=== PATIENT | female | born 1975 | race African-American/Black ===

== ENCOUNTER 2016-08-16 02:04 | Emergency (ER) | payer OTHER ==
--- NOTE | ~2016-08-16 | CT71 ---
[facility] A Service of [facility] RADIOLOGY TEXT RESULTS PATIENT: JUDI LOCO LOCATION: [facility] : 73 UNIT #: [id number] AGE: [address]: NICOLAS BALTAZAR APRN SEX: F ORDER DR: [id number] [place], [place] [address] [id number] E MR#: [id number] Acc #: [id number] NAME: JUDI LOCO : 1975 SEX: F STUDY DATE/TIME: 08/16/2016 6:00 UNIT: [facility] ROOM: STUDY DESCRIPTION: CT Head Wo Contrast Attending Physician: Nicolas Baltazar Aprn Ordering Physician: Nicolas Baltazar Aprn Primary Care Physician: Shellie Solis M.D. MEDICAL IMAGING REPORT This report is preliminary unless electronic signature is present EXAM CT scan of the head without contrast. HISTORY Multiple falls and dizziness for 3 months with a history of pituitary tumor. COMPARISON 10/31/2015 TECHNIQUE Axial unenhanced images were obtained through the brain. This CT exam was performed with one or more of the following radiation dose reduction techniques: automatic exposure control, adjustment of mA and/or kV according to patient size, and iterative reconstruction. FINDINGS The ventricles and subarachnoid spaces are normal. No masses are identified. No pituitary tumor is visible. There is no hemorrhage. IMPRESSION Normal unenhanced head CT scan. Dictated by... Branden Coles M.D. THIS IS AN ELECTRONICALLY VERIFIED REPORT Branden Coles M.D. at 08/16/2016 2:34 PM FEL/tmw [facility] A Service of [facility] / [facility] RADIOLOGY TEXT RESULTS PATIENT: JUDI LOCO LOCATION: [facility] : 73 UNIT #: [id number] AGE: [address]: NICOLAS BALTAZAR APRN SEX: F ORDER DR: TD: 08/16/2016 12:56 JOB #: [id number] MEDICAL IMAGING REPORT Page 1 of 1 COPY
--- NOTE | ~2016-08-16 | CR106 ---
[facility] A Service of [facility] & [facility] RADIOLOGY TEXT RESULTS PATIENT: JUDI LOCO LOCATION: [facility] : 73 UNIT #: [id number] AGE: [address]: NICOLAS BALTAZAR APRN SEX: F ORDER DR: [id number] [facility] [address] [place], [place] [address] [id number] E MR#: [id number] Acc #: [id number] NAME: JUDI LOCO : 1975 SEX: F STUDY DATE/TIME: 08/16/2016 3:29 UNIT: [facility] ROOM: STUDY DESCRIPTION: CR Femur 2 Views Lt Attending Physician: Nicolas Baltazar Aprn Ordering Physician: Nicolas Baltazar Aprn Primary Care Physician: Shellie Solis M.D. MEDICAL IMAGING REPORT This report is preliminary unless electronic signature is present EXAM Left femur, 08/16/2016. HISTORY 41-year-old female in the ED complaining of femur pain after a fall yesterday. TECHNIQUE AP and lateral radiographs of the left femur. FINDINGS The examination is negative. No fracture, dislocation, or other osseous abnormality. IMPRESSION Negative left femur series. Dictated by... Jaya Zacarias M.D. THIS IS AN ELECTRONICALLY VERIFIED REPORT Jaya Zacarias M.D. at 08/16/2016 9:56 PM ROSSW/gabrielle TD: 08/16/2016 12:27 JOB #: [id number] MEDICAL IMAGING REPORT Page 1 of 1 COPY
[~2016-08-16 02:04] MED LIST: CIPRO PO; FERRO-TIME325 MG PO; FLEXERIL10 M1 PO; FOLIC ACID1 MG PO; LIORESAL10 MG PO; LOPRESSOR PO; LYRICA100 MG PO; LYRICA75 MG PO; MULTI VITAMIN1 EACH PO; NEURONTIN600 MG PO; NORVASC PO; OXYBUTYNIN15 MG/BOTT PO; OXYCODONE HCL5 MG PO; PHENERGAN12.5 MG PO; POTASSIUM CHLO10 ME1 PO; SYNTHROID PO; VISTARIL PO; VOLTAREN50 MG PO; XODOL 7.5-3001 EACH PO; ZOFRAN PO
[2016-08-16 04:41] LABS: URINE APPEARANCE CLOUDY; URINE BILIRUBIN NEG (NEG); URINE BLOOD NEG (NEG); URINE COLOR DK YELLOW; URINE GLUCOSE NEG (NEG); URINE KETONE TRACE (NEG); URINE LEUKOCYTE ESTERASE 1+ (NEG); URINE NITRATE NEG (NEG); URINE PH 5.5 (5-8); URINE PROTEIN 1+ (NEG); URINE SPECIFIC GRAVITY 1.029 (1.003-1.035)
[2016-08-16 04:45] LABS: CULTURE INDICATED? YES; URINE BACTERIA AUWI NEG (NEGATIVE); URINE SQUAMOUS EPITHELIAL CELL MANY /[HPF]
[2016-08-16 04:46] LABS: BASOPHIL% 0.6 % (0-2.5); EOSINOPHIL% 1.9 % (0.0-7.0); HEMATOCRIT 35.1 % (35.0-45.0); HEMOGLOBIN 11.7 gm/dL (12.0-16.0); LYMPHOCYTE% 44.9 % (17.0-45.0); MEAN CELL VOLUME 103.8 FL (83-96); MEAN CORPUSCULAR HEMOGLOBIN 34.7 PG (28-34); MEAN CORPUSCULAR HGB CONC 33.4 g/dL (30-36); MEAN PLATELET VOLUME 7.8 FL (6.5-11.5); MONOCYTE# 0.2 X10e3 (0-1.0); MONOCYTE% 10.2 % (3.0-12.0); NEUTROPHIL% 42.4 % (40-75); PLATELET COUNT 140 X10e3 (140-420); RED BLOOD COUNT 3.38 X10e (3.90-5.30); RED CELL DISTRIBUTION WIDTH 17.1 % (11.0-15.5); WHITE BLOOD COUNT 2.2 X10e3 (4.0-10.5)
[2016-08-16 04:48] LABS: DIFF IND YES
[2016-08-16 04:52] LABS: U HYALINE CASTS AUWI 0-2 /[LPF]
[2016-08-16 05:05] LABS: ALBUMIN SERUM 3.7 g/dL (3.5-5.0); BILIRUBIN, DIRECT 0.2 mg/dL (0.0-0.2); BILIRUBIN,INDIRECT 0.8 mg/dL (0.0-0.9); BUN/CREATININE RATIO 15.55; CALCIUM SERUM 8.8 mg/dL (8.4-10.2); CREATININE SERUM 0.9 mg/dL (0.6-1.4); GLOM FILT RATE Estimated 91.5 mL/min (>60); POTASSIUM 3.3 mmol/L (3.5-5.1); PROTEIN TOTAL SERUM 6.8 g/dL (6.0-8.3)
[2016-08-16 05:10] LABS: ANISOCYTOSIS SL; PLATELET ESTIMATE NORMAL (NORMAL)
[2016-08-16 05:11] LABS: TARGET CELLS SL
== END 2016-08-16 07:09 | disposition home or self-care (01) ==
LOC: CED 02:04
PROVIDERS: Nurse Practitioner Family
DX: S70.12XA Contusion of left thigh, initial encounter (principal); R25.1 Tremor, unspecified; F41.9 Anxiety disorder, unspecified; F17.210 Nicotine dependence, cigarettes, uncomplicated; Z90.49 Acquired absence of other specified parts of digestive tract; Z98.51 Tubal ligation status; Z88.6 Allergy status to analgesic agent; Z79.899 Other long term (current) drug therapy; W18.30XA Fall on same level, unspecified, initial encounter; Y92.9 Unspecified place or not applicable
CPT/HCPCS: 36415; 70450; 73552; 80048; 80076; 81003; 84703; 85025; 87086; 99284

== ENCOUNTER 2016-10-03 10:19 | Emergency (ER) | payer OTHER ==
[~2016-10-03] VITALS: Ht 165.1 cm; Wt 81.6 kg
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
== END 2016-10-03 12:40 | disposition home or self-care (01) ==
LOC: CED 10:19
DX: S13.4XXA Sprain of ligaments of cervical spine, initial encounter (principal); F17.200 Nicotine dependence, unspecified, uncomplicated; V59.50XA Passenger in pick-up truck or van injured in collision with unspecified motor vehicles in traffic accident, initial encounter
CPT/HCPCS: 72040; 99284

== ENCOUNTER → 2016-10-22 | Outpatient (CLI) | payer OTHER ==
--- NOTE | ~2016-10-22 | US116 ---
[facility] A Service of [facility] RADIOLOGY TEXT RESULTS PATIENT: JUDI LOCO LOCATION: [facility] : 73 UNIT #: [id number] AGE: [address]: Shellie Solis MD SEX: F ORDER DR: [id number] [facility] [place], [place] [address] [id number] O MR#: [id number] Acc #: [id number] NAME: JUDI LOCO : 1975 SEX: F STUDY DATE/TIME: 10/22/2016 15:56 UNIT: [facility] ROOM: STUDY DESCRIPTION: US Soft Tissue Head/Neck Attending Physician: Shellie Solis M.D. Ordering Physician: Shellie Solis M.D. Primary Care Physician: Shellie Solis M.D. MEDICAL IMAGING REPORT This report is preliminary unless electronic signature is present EXAM Ultrasound of the neck soft tissue HISTORY Abnormal radiograph of the cervical spine showing some tracheal deviation to the right. Patient was also noted to have thyroid nodules on a prior CT performed on 10/31/2015. Cervical spine CT showed a nodule within the left lobe of the thyroid gland. TECHNIQUE Mcneil-scale and color Doppler sonographic images were obtained through the patient's thyroid gland. FINDINGS Patient's right thyroid lobe is surgically absent. Left lobe measures 2.4 x 4 x 2.1 cm. Patient is noted to have heterogeneous mixed solid and cystic nodules measuring up to 1.8 x 1.8 x 1.6 cm. This may have been present on the prior ultrasound from 2004 but certainly appears larger than on that examination. IMPRESSION 1. Status post right thyroidectomy. 2. This patient has a heterogeneous mixed solid and cystic nodule within the left lobe of the thyroid gland, which may have been present in 2004 but certainly has increased when compared to that examination. It measures up to 1.8 x 1.8 x 1.6 cm. Suggest further evaluation with FNA. Dictated by... Justine Gutierrez M.D. [facility] A Service of [facility] RADIOLOGY TEXT RESULTS PATIENT: JUDI LOCO LOCATION: [facility] : 73 UNIT #: [id number] AGE: [address]: Shellie Solis MD SEX: F ORDER DR: THIS IS AN ELECTRONICALLY VERIFIED REPORT Justine Gutierrez M.D. at 10/26/2016 5:05 PM AFF/pcl TD: 10/23/2016 22:23 JOB #: [id number] MEDICAL IMAGING REPORT Page 1 of 1 COPY
== END | disposition home or self-care (01) ==
LOC: CWCC 15:43
DX: J39.8 Other specified diseases of upper respiratory tract (principal); Z98.890 Other specified postprocedural states; E04.1 Nontoxic single thyroid nodule
CPT/HCPCS: 76536

== ENCOUNTER → 2016-11-17 | Outpatient (CLI) | payer OTHER ==
--- NOTE | ~2016-11-17 | XA230 ---
[facility] A Service of [facility] & [facility] RADIOLOGY TEXT RESULTS PATIENT: JUDI LOCO [facility] : 73 UNIT #: [id number] AGE: [address]: Shellie Solis MD SEX: F ORDER DR: [id number] [facility] [address] [place], [place] [address] [id number] O MR#: [id number] Acc #: [id number] NAME: JUDI LOCO : 1975 SEX: F STUDY DATE/TIME: 11/17/2016 10:51 UNIT: [facility] ROOM: STUDY DESCRIPTION: XA FNA Attending Physician: Shellie Solis M.D. Referring Physician: Shellie Solis M.D. Ordering Physician: Shellie Solis M.D. Primary Care Physician: Shellie Solis M.D. MEDICAL IMAGING REPORT This report is preliminary unless electronic signature is present EXAM Ultrasound guided thyroid FNA INDICTIONS Heterogeneous left thyroid nodule which has increased in size since 07/2004 PROCEDURE The risks, benefits, and alternatives to the procedure were explained to the patient, and signed informed consent was obtained. She was placed supine on the stretcher and preliminary ultrasound of the left lobe of the thyroid gland was performed which demonstrated again a heterogeneous nodule. This images was permanently saved. The overlying skin was marked, the patient was prepped and draped in the usual sterile fashion. Time-out was performed as per protocol. Skin and subcutaneous tissues were anesthetized with buffered lidocaine. The patient was covered with a sterile probe cover and sterile gel was applied. A total of three separate passes were made into the lesion under direct sterile sonographic guidance using 25-gauge needles. Specimens were given to the chief medical technologist who confirm an adequate specimen had been obtained. Patient tolerated the procedure well and there were no immediate complications. IMPRESSION Technically successful ultrasound guided left thyroid FNA as noted above. Ultrasound was used to the procedure and permanent images were saved. Dictated by... Justine Gutierrez M.D. THIS IS AN ELECTRONICALLY VERIFIED REPORT Justine Gutierrez M.D. at 11/19/2016 2:44 PM AFF/cmm [facility] A Service of [facility] & [facility] RADIOLOGY TEXT RESULTS PATIENT: JUDI LOCO LOCATION: [facility] : 73 UNIT #: [id number] AGE: [address]: Shellie Solis MD SEX: F ORDER DR: TD: 11/18/2016 13:14 JOB #: [id number] MEDICAL IMAGING REPORT Page 1 of 1 COPY
== END | disposition home or self-care (01) ==
LOC: CIVR 10:00
DX: E04.1 Nontoxic single thyroid nodule (principal)
CPT/HCPCS: 76942; 88173; 88305